=== PATIENT | male | born 1955 | race Caucasian/White ===

== ENCOUNTER 2018-06-17 16:44 | Observation (INO) ==
--- NOTE | 2018-06-17 17:28 | XR ---
EXAM DATE: 06/17/2018 5:23 PM EST AGE/SEX: 63 years / Male INDICATIONS: Syncopal episode today. CLINICAL DATA: This is the patient's initial encounter. Patient reports that signs and symptoms have been present for 1 day and indicates a pain score of 0/10. MEDICAL/SURGICAL HISTORY: Hypertension. CABG. COMPARISON: No prior exams available for comparison. FINDINGS: A single AP view of the chest demonstrates the lungs to be symmetrically aerated without evidence of mass, infiltrate or effusion. The cardiomediastinal contours are unremarkable. Osseous structures a re intact. Median sternotomy wires are noted. CONCLUSION: Clear lungs. Electronically signed by: Prasanth Bethea MD Board Certified Radiologist 06/17/2018 5:27 PM EST
--- NOTE | 2018-06-17 17:37 | ED ---
HPI General Chief Complaint: Syncope Stated Complaint: syncopal episode Time Seen by Provider: 06/17/18 17:03 Source: patient and EMS Mode of arrival: EMS Limitations: no limitations History of Present Illness HPI narrative: Patient is a 60-year-old male presenting to emerge department for evaluation after syncopal event. Patient was at home, he states that he felt somewhat lightheaded when he was getting ready for work. His encouraged him to lay down which he did and shortly thereafter he hurt his phone ring, he got up to get his phone when he passed out hitting his head on the coffee table and then the tile floor. Patient does not remember events immediately after. Per EMS patient was hypotensive on their arrival with a systolic blood pressure in the 70s, he was given IV fluids in route. Patient reports feeling fine now. He denies any headache, dizziness, chest pain, shortness of breath, abdominal pain, nausea, vomiting prior to the episode or after. Past medical history significant for hypertension, coronary artery disease, hyperlipidemia, prostate cancer. Patient had 5 vessel bypass in 2011. He is currently followed by Dr. Koo who he saw 6 weeks ago. Patient states he takes lisinopril and carvedilol, he also takes a baby aspirin at night. MD complaint: Reports collapsed Onset (ago): minute(s) -: minutes(s) Description of event: Reports post-event confusion Prodromal symptoms: Reports none Witnessed: yes - by other Context: Reports standing up Injuries sustained associated with event: Reports neck, face and head Current symptoms: Reports none History: Reports history of CAD Treatments prior to arrival: Reports IV fluids Related Data Home Medications Medication Instructions Recorded Confirmed carvedilol 12.5 mg PO DAILY 06/17/18 06/17/18 lisinopril 10 mg PO DAILY 06/17/18 06/17/18 Allergies Allergy/AdvReac Type Severity Reaction Status Date / Time No Known Allergies Allergy Uncoded 03/23/16 01:37 Review of Systems ROS: all other systems reviewed are negative [facility] Medical History Medical History CAD (coronary artery disease) (Acute) Hyperlipidemia (Acute) Hypertension (Acute) Prostate cancer (Acute) Social History Social History Smoking Status: Never smoker How Often Do You Have a Drink Containing Alcohol: Never Immunization History Tetanus Immunization: Unsure Exam Narrative Exam Narrative: GENERAL: Well-developed, well-nourished, alert male. Presenting in no acute distress. SKIN: Focused skin assessment warm/dry. Superficial abrasion to right cheek, bridge of nose HEAD: Atraumatic. Normocephalic. EYES: Pupils equal and round. No scleral icterus. No injection or drainage. ENT: No nasal bleeding or discharge. Mucous membranes pink and moist. NECK: Trachea midline. No JVD. CARDIOVASCULAR: Regular rate and rhythm. No murmur appreciated. RESPIRATORY: No accessory muscle use. Clear to auscultation. Breath sounds equal bilaterally. GASTROINTESTINAL: Abdomen soft, non-tender, nondistended. Hepatic and splenic margins not palpable. MUSCULOSKELETAL: No obvious deformities. No clubbing. No cyanosis. No edema. NEUROLOGICAL: Awake and alert. No obvious cranial nerve deficits. Motor grossly within normal limits. Normal speech. PSYCHIATRIC: Appropriate mood and affect; insight and judgment normal. Course Initial Documented Vital Signs Temperature 97.5 F L 06/17/18 16:51 Pulse Rate 71 06/17/18 16:51 Respiratory Rate 18 06/17/18 16:51 Blood Pressure 110/57 L 06/17/18 16:51 Pulse Oximetry 94 L 06/17/18 16:51 Last Documented Vital Signs Temperature 97.5 F L 06/17/18 16:51 Pulse Rate 82 06/17/18 19:04 Respiratory Rate 18 06/17/18 19:04 Blood Pressure 109/71 06/17/18 19:04 Pulse Oximetry 96 06/17/18 19:05 Medical Decision Making [facility] Narrative Medical decision making narrative: Patient is a 63-year-old male presenting to emerge department for evaluation after syncopal episode. IV access was established by EMS, he received IV fluids in route. Labs and imaging ordered and pending. CT scan of the brain, facial bones and cervical spine ordered. CT scan of the brain shows no acute findings, CT scan of the cervical spine with no acute findings, CT scan of the facial bones shows a comminuted nasal bone fracture. CBC with no acute findings, chemistry with potassium of 5.8. X-ray of the forearm is negative for acute findings. Cardiac enzymes are negative x1 set Due to patient's significant medical history patient will be admitted. Discussed with Dr. Landon who accepted admit. Orders placed. Patient is agreeable to stay. Medical Screen Exam Complete: Yes Emergency Medical Condition: Yes Lab Data Lab results reviewed: Yes I reviewed the patient's lab results. Result diagrams: 06/17/18 17:10 06/17/18 17:10 Lab Results 06/17/18 06/17/18 06/17/18 Range/Units 17:10 17:10 17:10 WBC 10.1 (4.0-11.0) th/mm3 RBC 4.98 (4.50-5.90) mil/mm3 Hgb 15.7 (13.0-17.0) gm/dL Hct 44.6 (39.0-51.0) % MCV 89.6 (80.0-100.0) fL MCH 31.4 (27.0-34.0) pg MCHC 35.1 (32.0-36.0) % RDW 13.2 (11.6-17.2) % Plt Count 228 (150-450) th/mm3 MPV 9.1 (7.0-11.0) fL Prelim Diff (Auto) Slide review pending Neut % (Auto) 74.6 H (16.0-70.0) % Lymph % (Auto) 16.7 (9.0-44.0) % Dickinson % (Auto) 6.7 (0.0-8.0) % Eos % (Auto) 1.5 (0.0-4.0) % Baso % (Auto) 0.5 (0.0-2.0) % Neut # (Auto) 7.6 (1.8-7.7) th/mm3 Lymph # (Auto) 1.7 (1.0-4.8) th/mm3 Dickinson # (Auto) 0.7 (0.0-0.9) th/mm3 Eos # (Auto) 0.1 (0.0-0.4) th/mm3 Baso # (Auto) 0.0 (0.0-0.2) th/mm3 WBC Differential . Diff Scan Auto diff confirmed Differential Comment . Platelet Estimate Normal (Normal) Platelet Morphology Normal (Normal) PT 10.7 (9.8-11.6) sec INR 1.1 Ratio APTT 25.5 (23.4-31.7) sec Sodium 140 (136-145) meq/L Potassium 5.8 H (3.5-5.1) meq/L Chloride 106 (98-107) meq/L Carbon Dioxide 26.6 (21.0-32.0) meq/L Anion Gap 7 (5-15) meq/L BUN 12 (7-18) mg/dL Creatinine 1.19 (0.60-1.30) mg/dL Estimated GFR 62 L (>89) mL/min Random Glucose 149 H (74-106) mg/dL Calcium 8.7 (8.5-10.1) mg/dL Magnesium 2.1 (1.5-2.5) mg/dL Total Bilirubin 1.6 H (0.2-1.0) mg/dL AST 23 (15-37) U/L ALT 22 (12-78) U/L Alkaline Phosphatase 102 (45-117) U/L Total Creatine Kinase 102 (39-308) U/L CK-MB (CK-2) 1.7 (0.5-3.6) ng/mL Troponin I Less than 0.02 L (0.02-0.05) ng/mL Total Protein 7.2 (6.4-8.2) g/dL Albumin 3.8 (3.4-5.0) g/dL Imaging Data Radiologist's impression: Chest X-Ray 06/17/18 16:57 CONCLUSION: Clear lungs. Cervical Spine CT 06/17/18 17:00 CONCLUSION: 1. No acute fracture or subluxation. 2. Degenerative spondylosis of the lower cervical spine. Face CT 06/17/18 17:00 CONCLUSION: 1. Comminuted nasal bone fractures, as above. Head CT 06/17/18 17:01 CONCLUSION: Unremarkable cranial study except for nasal bone fractures discussed on the patient's facial CT . Forearm X-Ray 06/17/18 18:57 CONCLUSION: 1. No acute fracture. Discharge Plan Discharge Disposition Patient Disposition: ED Admit(ED Internal Use Only) Discharge Condition Condition: Stable Discharge Order Discharge Orders: ED Use Only Admit Order (Routine); Ordered 06/17/18 Ordered By: Chel Lewis Discharge Details Diagnosis: Syncope, Hypotension, Fracture of nasal bone Physicians Team ED Provider: Rosibel Ortiz ED Midlevel Provider: Chel Lewis Rxs /Orders / Referrals /Forms Prescriptions: No Action carvedilol 12.5 mg Tablet 12.5 mg PO DAILY RF: 0 lisinopril 10 mg Tablet 10 mg PO DAILY RF: 0 Status ED Status: Admitted Observation Patient
--- NOTE | 2018-06-17 17:54 | CT ---
EXAM DATE: 06/17/2018 5:49 PM EST AGE/SEX: 63 years / Male INDICATIONS: Syncopal episode. No memory of incident. CLINICAL DATA: This is the patient's initial encounter. Patient reports that signs and symptoms have been present for 1 day and indicates a pain score of 7/10. MEDICAL/SURGICAL HISTORY: None. CABG. RADIATION DOSE: 56.35 CTDI (mGy) COMPARISON: No prior exams available for comparison. TECHNIQUE: CT of the head without contrast. Using automated exposure control and adjustment of the mA and/or kV according to patient size, radiation dose was kept as low as reasonably achievable to ob tain optimal diagnostic quality images. DICOM format image data is available electronically for revi ew and comparison. FINDINGS: There is no evidence for intracranial hemorrhage, mass effect, mass lesions, edema, or extra-axial fl uid collections. The visualized bony structures appear intact. The ventricles are normal size for t he patient's age. There are no signs of acute infarction for technique. Nasal bone fractures are pre sent discussed on the patient's facial CT. CONCLUSION: Unremarkable cranial study except for nasal bone fractures discussed on the patient's fa cial CT . Electronically signed by: Robert Caraballo MD Board Certified Radiologist 06/17/2018 5:52 PM EST
--- NOTE | 2018-06-17 17:55 | CT ---
EXAM DATE: 06/17/2018 5:50 PM EST AGE/SEX: 63 years / Male INDICATIONS: Syncopal episode. No memory of incident. CLINICAL DATA: This is the patient's initial encounter. Patient reports that signs and symptoms have been present for 1 day and indicates a pain score of 7/10. MEDICAL/SURGICAL HISTORY: None. CABG. RADIATION DOSE: 21.96 CTDI (mGy) COMPARISON: No prior exams available for comparison. TECHNIQUE: Contiguous images in the axial and coronal planes were obtained using helical multirow de tector technique. Using automated exposure control and adjustment of the mA and/or kV according to p atient size, radiation dose was kept as low as reasonably achievable to obtain optimal diagnostic charity lity images. DICOM format image data is available electronically for review and comparison. FINDINGS: Orbits: The orbital and infraorbital osseous structures are intact. The retroconal structures have a normal configuration. No radiopaque foreign bodies are seen. Nasal Bone: Comminuted fracture of the nasal bones. There is prominent right-sided deviation of the anterior bony nasal septum. Zygomatic Arches: Symmetric without evidence of fracture. Sinuses: The maxillary, ethmoid, and frontal sinuses are intact. No air-fluid levels seen. Mild muc operiosteal thickening involving the maxillary sinuses and ethmoid air cells bilaterally. Nasal Cavity: The lacrimal ducts are intact. Soft Tissues: No radiopaque foreign bodies seen. No soft-tissue swelling is seen. Intracranial: No intracranial air seen. Cribriform Plate: Grossly intact. CONCLUSION: 1. Comminuted nasal bone fractures, as above. Electronically signed by: Jori Bonilla MD Board Certified Radiologist 06/17/2018 5:54 PM EST
--- NOTE | 2018-06-17 17:57 | CT ---
EXAM DATE: 06/17/2018 5:52 PM EST AGE/SEX: 63 years / Male INDICATIONS: Syncopal episode. No memory of incident. CLINICAL DATA: This is the patient's initial encounter. Patient reports that signs and symptoms have been present for 1 day and indicates a pain score of 7/10. MEDICAL/SURGICAL HISTORY: None. CABG. RADIATION DOSE: 17.94 CTDI (mGy) COMPARISON: No prior exams available for comparison. TECHNIQUE: Contiguous axial images were obtained using helical multirow detector technique. The vol umetric data was post-processed with multiplanar reconstruction in oblique axial, sagittal, and coron al planes. Using automated exposure control and adjustment of the mA and/or kV according to patient s ize, radiation dose was kept as low as reasonably achievable to obtain optimal diagnostic quality sayra ges. DICOM format image data is available electronically for review and comparison. FINDINGS: OSSEOUS STRUCTURES: Vertebral body heights are maintained. Osseous structures are intact without evid ence for acute bony fracture. Dens is intact. ALIGNMENT: Sagittal alignment is maintained. There is a normal C1-2 relationship. Facets are normal ly aligned. SOFT TISSUES: There is no significant prevertebral soft tissue hematoma. No significant cervical tutu nopathy or gross mass. Visualized lung apices are clear without pneumothorax. ADDITIONAL FINDINGS: Degenerative spondylosis of the cervical spine most notably at C4-6 with promine nt anterior osteophytes. Bony central canal is patent. Bony neural foramina are patent. Multilevel f acet arthropathy most notably at C2-3 on the right. CONCLUSION: 1. No acute fracture or subluxation. 2. Degenerative spondylosis of the lower cervical spine. Electronically signed by: Jori Bonilla MD Board Certified Radiologist 06/17/2018 5:55 PM EST
[2018-06-17 18:13] LABS: Baso % (Auto) 0.5 % (0.0-2.0); Eos # (Auto) 0.1 th/mm3 (0.0-0.4); Eos % (Auto) 1.5 % (0.0-4.0); Hematocrit 44.6 % (39.0-51.0); Hemoglobin 15.7 gm/dL (13.0-17.0); Lymph # (Auto) 1.7 th/mm3 (1.0-4.8); Lymph % (Auto) 16.7 % (9.0-44.0); Mean Corpuscular HGB Conc 35.1 % (32.0-36.0); Mean Corpuscular Hemoglobin 31.4 pg (27.0-34.0); Mean Corpuscular Volume 89.6 fL (80.0-100.0); Mean Platelet Volume 9.1 fL (7.0-11.0); Mono # (Auto) 0.7 th/mm3 (0.0-0.9); Mono % (Auto) 6.7 % (0.0-8.0); Neut # (Auto) 7.6 th/mm3 (1.8-7.7); Neut % (Auto) 74.6 % (16.0-70.0); Platelet Count 228 th/mm3 (150-450); Red Blood Count 4.98 mil/mm3 (4.50-5.90); Red Cell Distribution Width 13.2 % (11.6-17.2); White Blood Count 10.1 th/mm3 (4.0-11.0)
[2018-06-17 18:21] LABS: Albumin 3.8 g/dL (3.4-5.0); Anion Gap 7 meq/L (5-15); Aspartate Aminotransferase 23 U/L (15-37); Blood Urea Nitrogen 12 mg/dL (7-18); Calcium 8.7 mg/dL (8.5-10.1); Carbon Dioxide 26.6 meq/L (21.0-32.0); Chloride 106 meq/L (98-107); Glomerular Filtration Rate 62 mL/min (>89); Glucose,Random 149 mg/dL (74-106); Magnesium 2.1 mg/dL (1.5-2.5); Potassium 5.8 meq/L (3.5-5.1); Sodium 140 meq/L (136-145)
[2018-06-17 18:24] LABS: Activated Partial Thrombo Time 25.5 sec (23.4-31.7); INR 1.1 Ratio; Prothrombin Time 10.7 sec (9.8-11.6)
[2018-06-17 18:26] LABS: Alanine Aminotransferase 22 U/L (12-78); Alkaline Phosphatase 102 U/L (45-117); Creatine Kinase 102 U/L (39-308); Total Protein 7.2 g/dL (6.4-8.2)
[2018-06-17 18:38] LABS: Creatine Kinase MB 1.7 ng/mL (0.5-3.6)
[2018-06-17 18:50] LABS: Platelet Estimate Normal (Normal); Platelet Morphology Normal (Normal)
--- NOTE | 2018-06-17 19:18 | XR ---
EXAM DATE: 06/17/2018 7:16 PM EST AGE/SEX: 63 years / Male INDICATIONS: Left forearm pain after fall. CLINICAL DATA: This is the patient's initial encounter. Patient reports that signs and symptoms have been present for 1 day and indicates a pain score of 6/10. MEDICAL/SURGICAL HISTORY: None. None. COMPARISON: No prior exams available for comparison. FINDINGS: Bony structures are intact and in normal alignment. Osseous density is normal. Soft tissues are unre markable. No radiopaque foreign bodies seen. CONCLUSION: 1. No acute fracture. Electronically signed by: Jori Bonilla MD Board Certified Radiologist 06/17/2018 7:16 PM EST
[2018-06-17] MEDS ORDERED: Acetaminophen 325 MG Tablet PO PRN (19:31)
[2018-06-17] MEDS ORDERED: Bisacodyl 10 MG Supp RECTAL PRN (19:31)
[2018-06-17] MEDS ORDERED: Dextrose 50% in Water 50 ML Vial IV.PUSH ONE (20:12)
[2018-06-17] MEDS ORDERED: Insulin NovoLIN Regular Correctional Sugar Inj IV.PUSH ONE (20:14)
--- NOTE | 2018-06-17 20:49 | P.HPIM ---
History of Present Illness Primary Care Physician: UNKNOWN History of Present Illness: This is a 63-year-old male with a PMH of HTN, Hyperlipidemia, CAD s/p CABG and h/o Prostate CA s/p Prostatectomy who was brought to the ER by EMS after syncopal event. Pt states he got up to answer the phone and had sudden syncopal event. +head/facial trauma. Notes some lightheadedness earlier this morning after taking his BP medications. Upon EMS arrival, BP 70's systolic, s/p IVF w/ improvement. No h/o similar episodes. Follows carri/ Dr Koo as outpatient, seen in office approx 6wks ago w/ good exam. On arrival, BP 110/57, HR 71, O2 sat 94% on RA, Afebrile. CBC unremarkable. INR 1.1. K+ 5.8. GFR 62. Troponin negative. CT Head with no acute intracranial findings. CT C-spine negative for acute fracture or subluxation. CT Face comminuted nasal bone fractures. CXR negative. Forearm X -ray negative for fracture. Diagnosis (1) Syncope: (2) Hypotension: (3) Fracture of nasal bone: (4) Hyperkalemia: Review of Systems PAST FAMILY HISTORY: Reviewed. No h/o DM or CAD Review of Systems: all other systems reviewed are negative [facility] Medical History Medical History CAD (coronary artery disease) (Acute) Hyperlipidemia (Acute) Hypertension (Acute) Prostate cancer (Acute) Social History Social History Smoking Status: Never smoker How Often Do You Have a Drink Containing Alcohol: Never Immunization History Tetanus Immunization: Unsure Medications and Allergies Allergies Allergy/AdvReac Type Severity Reaction Status Date / Time No Known Allergies Allergy Uncoded 03/23/16 01:37 Home Medications Medication Instructions Recorded Confirmed Type carvedilol 12.5 mg PO DAILY 06/17/18 06/17/18 History lisinopril 10 mg PO DAILY 06/17/18 06/17/18 History Active Medications: Active Medications Acetaminophen (Tylenol) 650 mg PO Q4H PRN PRN Reason: Temp > 100.4 Hydrocodone Bitart/Acetaminophen ([place] 5/325) 1 tab PO Q4H PRN PRN Reason: PAIN SCALE 3 TO 5 Al Hydroxide/Mg Hydroxide (Milk Of Magnesia Liq) 30 ml PO Q12H PRN PRN Reason: Mild Constipation Bisacodyl (Dulcolax Supp) 10 mg RECTAL DAILY PRN PRN Reason: SEVERE CONSITIPATION Sodium Chloride (Ns Inj) 1,000 mls @ 100 mls/hr IV.CONT .Q10H DOC Calcium Gluconate 1 gm/ (Dextrose) 110 mls @ 110 mls/hr IV.SIG ONCE ONE Stop: 06/17/18 22:59 Lactulose (Lactulose Liq) 30 ml PO DAILY PRN PRN Reason: SEVERE CONSITIPATION Morphine Sulfate (Morphine Inj) 2 mg IV.PUSH Q4H PRN PRN Reason: PAIN SCALE 6 TO 10 Ondansetron HCl (Zofran Inj) 4 mg IV.PUSH Q6H PRN PRN Reason: NAUSEA OR VOMITING Senna/Docusate Sodium (Catia-Colace) 1 tab PO BID DOC Sennosides (Senokot) 17.2 mg PO Q12H PRN PRN Reason: Moderate Constipation Sodium Chloride (Ns Flush) 2 ml IV.FLUSH BID DOC Sodium Chloride (Ns Flush) 2 ml IV.FLUSH PRN PRN PRN Reason: FLUSH AFTER USING IV ACCESS Physical Exam Vital signs: Vital Signs 06/17/18 16:51 06/17/18 17:57 06/17/18 19:04 Temperature 97.5 F L Pulse Rate 71 66 82 Respiratory Rate 18 20 18 Blood Pressure 110/57 L 109/59 L 109/71 Pulse Oximetry 94 L 95 96 06/17/18 19:05 Temperature Pulse Rate Respiratory Rate Blood Pressure Pulse Oximetry 96 Intake & Output 06/17/18 06/17/18 06/18/18 06:59 18:59 06:59 Weight 83.915 kg Narrative: PE: GENERAL: Very pleasant middle-aged white male in no acute distress. SKIN: Focused skin assessment warm and dry. HEENT: PERRLA, EOMI. No scleral icterus or conjunctival pallor. No lid lag or facial droop. +small abrasion right cheek, nose CARDIOVASCULAR: Regular rate and rhythm. No obvious murmurs to auscultation. No chest tenderness to palpation. RESPIRATORY: No obvious rhonchi or wheezing. Clear to auscultation. Breath sounds equal bilaterally. GASTROINTESTINAL: Abdomen soft, non-tender, nondistended. BS normal. MUSCULOSKELETAL: Extremities without clubbing, cyanosis, or edema. No obvious deformities. NEUROLOGICAL: Awake, alert and oriented x4. No focal neurologic deficits. Moving both upper and lower extremities spontaneously. PSYCHIATRIC: Appropriate mood and affect. Insight and judgment normal. Results Labs CBC & Chem 7: 06/17/18 17:10 06/17/18 17:10 Imaging Impressions Chest X-Ray 06/17/18 16:57 CONCLUSION: Clear lungs. Cervical Spine CT 06/17/18 17:00 CONCLUSION: 1. No acute fracture or subluxation. 2. Degenerative spondylosis of the lower cervical spine. Face CT 06/17/18 17:00 CONCLUSION: 1. Comminuted nasal bone fractures, as above. Head CT 06/17/18 17:01 CONCLUSION: Unremarkable cranial study except for nasal bone fractures discussed on the patient's facial CT . Forearm X-Ray 06/17/18 18:57 CONCLUSION: 1. No acute fracture. Caprini VTE Risk Assessment Caprini VTE Risk Assessment: No/Low Risk (score <= 1) Caprini Risk Assessment Model: Point Value = 1 Point Value = 2 Point Value = 3 Point Value = 5 Age 41-60 Minor surgery BMI > 25 kg/m2 Swollen legs Varicose veins or History of unexplained or recurrent spontaneous Oral contraceptives or hormone replacement Sepsis (< 1 month) Serious lung disease, including pneumonia (< 1 month) Abnormal pulmonary function Acute myocardial infarction Congestive heart failure (< 1 month) History of inflammatory bowel disease Medical patient at bed rest Age 61-74 Arthroscopic surgery Major open surgery (> 45 min) Laparoscopic surgery (> 45 min) Malignancy Confined to bed (> 72 hours) Immobilizing plaster cast Central venous access Age >= 75 History of VTE Family history of VTE Factor V Leiden Prothrombin [id number] Lupus anticoagulant Anticardiolipin antibodies Elevated serum homocysteine Heparin-induced thrombocytopenia Other congenital or acquired thrombophilia Stroke (< 1 month) Elective arthroplasty Hip, pelvis, or leg fracture Acute spinal cord injury (< 1 month) Prophylaxis Regimen: Total Risk Factor Score Risk Level Prophylaxis Regimen 0-1 Low Early ambulation 2 Moderate Order ONE of the following: *Sequential Compression Device (SCD) *Heparin 5000 units SQ BID 3-4 Higher Order ONE of the following medications: *Heparin 5000 units SQ TID *Enoxaparin/Lovenox 40 mg SQ daily (WT < 150 kg, CrCl > 30 mL/min) *Enoxaparin/Lovenox 30 mg SQ daily (WT < 150 kg, CrCl > 10-29 mL/min) *Enoxaparin/Lovenox 30 mg SQ BID (WT < 150 kg, CrCl > 30 mL/min) AND/OR *Sequential Compression Device (SCD) 5 or more Highest Order ONE of the following medications: *Heparin 5000 units SQ TID (Preferred with Epidurals) *Enoxaparin/Lovenox 40 mg SQ daily (WT < 150 kg, CrCl > 30 mL/min) *Enoxaparin/Lovenox 30 mg SQ daily (WT < 150 kg, CrCl > 10-29 mL/min) *Enoxaparin/Lovenox 30 mg SQ BID (WT < 150 kg, CrCl > 30 mL/min) AND *Sequential Compression Device (SCD) Assessment and Plan (1) Syncope: Code(s): R55 - Syncope and collapse Status: Acute (2) Hypotension: Code(s): I95.9 - Hypotension, unspecified Status: Acute (3) Fracture of nasal bone: Code(s): S02.2XXA - Fracture of nasal bones, initial encounter for closed fracture Status: Acute (4) Hyperkalemia: Code(s): E87.5 - Hyperkalemia Status: Acute Plan A/P: 1. Syncope: likely vasovagal due to hypotension/dehydration, BP 70's upon EMS arrival, +lightheadedness prior to event, admit for Observation, telemetry, check serial cardiac enzymes to eval for valvular abnormality/cardiomyopathy. IVF for hydration, Follows w/ Dr. Koo, will consult for further eval/ recommendations. 2. Hypotension: BP 70's upon EMS arrival, s/p IVF w/ improvement, monitor BP closely, hold home Coreg/Lisinopril for now. 3. Hyperkalemia: K+ 5.8, telemetry, Ca/Insulin/D50, repeat labs in am. 4. Nasal Fx: secondary to syncopal event, CT Head/C-Spine w/ no acute findings or fracture, CT Face w/ nasal bone fractures, outpatient ENT eval as needed. Analgesics/antiemetics as needed. 5. DVT Prophylaxis: SCD/Teds 6. Social work for d/c planning as needed. 7. Case discussed w/ ER physician at length, labs/records/imaging reviewed by me. _ (1) Syncope Qualifiers: Encounter type: Syncope type: (2) Hypotension Qualifiers: Hypotension type: Trimester: (3) Fracture of nasal bone Qualifiers: Encounter type: Fracture healing: Fracture type:
[2018-06-17] MEDS ORDERED: Calcium Gluconate Inj 1 GM in Dextrose 5% in Water Inj 100 ML IV.SIG ONE ×2 (22:00)
--- NOTE | 2018-06-17 22:30 | ECG ---
Date Performed: 06/17/2018 Time Performed: 17:50:40 PTAGE: 63 years EKG: Sinus rhythm LEFT AXIS RIGHT BUNDLE BRANCH BLOCK OLD INFERIOR MYOCARDIAL INFARCTION ABNORMAL ECG PREVIOUS TRACING : 03/23/2016 08.05 Since the previous tracing, no significant change noted DOCTOR: Eugenie Koo Interpretating Date/Time 06/17/2018 22:29:00
[2018-06-17] MEDS: Sod Chloride 0.9% Inj 1,000 ML IV.CONT SCH (23:24)
[2018-06-17] MEDS: Senna/Docusate Sodium 8.6/50 MG Tablet PO SCH (23:25)
[2018-06-17] MEDS: Morphine Sulfate Inj 2 MG/ML Vial IV.PUSH PRN (23:46)
[2018-06-18] MEDS: Sod Chloride 0.9% Inj 1,000 ML IV.CONT SCH ×2 (06:46→16:17)
[2018-06-18 06:57] LABS: Baso % (Auto) 0.3 % (0.0-2.0); Eos # (Auto) 0.1 th/mm3 (0.0-0.4); Eos % (Auto) 0.6 % (0.0-4.0); Hematocrit 42.7 % (39.0-51.0); Lymph # (Auto) 1.7 th/mm3 (1.0-4.8); Lymph % (Auto) 14.5 % (9.0-44.0); Mean Corpuscular HGB Conc 35.1 % (32.0-36.0); Mean Corpuscular Hemoglobin 31.8 pg (27.0-34.0); Mean Corpuscular Volume 90.5 fL (80.0-100.0); Mono # (Auto) 0.8 th/mm3 (0.0-0.9); Mono % (Auto) 7.2 % (0.0-8.0); Neut # (Auto) 8.9 th/mm3 (1.8-7.7); Neut % (Auto) 77.4 % (16.0-70.0); Platelet Count 178 th/mm3 (150-450); Red Blood Count 4.71 mil/mm3 (4.50-5.90); Red Cell Distribution Width 13.2 % (11.6-17.2); White Blood Count 11.5 th/mm3 (4.0-11.0)
[2018-06-18 07:35] LABS: Alanine Aminotransferase 24 U/L (12-78); Albumin 3.4 g/dL (3.4-5.0); Alkaline Phosphatase 95 U/L (45-117); Anion Gap 8 meq/L (5-15); Aspartate Aminotransferase 19 U/L (15-37); Blood Urea Nitrogen 12 mg/dL (7-18); Calcium 8.7 mg/dL (8.5-10.1); Carbon Dioxide 25.7 meq/L (21.0-32.0); Chloride 108 meq/L (98-107); Glomerular Filtration Rate Greater Than 89 mL/min (>89); Glucose,Random 93 mg/dL (74-106); Sodium 142 meq/L (136-145); Total Protein 6.9 g/dL (6.4-8.2)
--- NOTE | 2018-06-18 07:58 | P.PNIM ---
Subjective Interval history: Follow-up for syncope, hypertension, hyperkalemia. Patient reports he feels like he was hit by a truck. States he is very sore throughout his face. Patient explains that over the past few months he has had intermittent brief episodes of lightheadedness, that resolved spontaneously. He states he has been on the same dosing of his lisinopril and Coreg since 2011. He states that he has lost about 20 pounds recently due to stress but also cutting back on soda. Patient denies any recent vomiting or diarrhea, does admit to possibly not drinking as much fluids recently. He denies any recent chest pains, palpitations, shortness of breath. Denies any abdominal complaints. He states due to his history of prostatectomy, he does wear a pad for occasional incontinence, but he states this is fairly well controlled. He denies any seizure-like activity. This is the first time he actually passed out. He follows with liaison engineer Dr. Koo. Denies any history of arrhythmia or cardiomyopathy. Denies any other medical complaints at this time. Physical Exam Vital signs: Vital Signs 06/17/18 16:51 06/17/18 17:57 06/17/18 19:04 Temperature 97.5 F L Pulse Rate 71 66 82 Respiratory Rate 18 20 18 Blood Pressure 110/57 L 109/59 L 109/71 Pulse Oximetry 94 L 95 96 06/17/18 19:05 06/17/18 21:05 06/17/18 23:33 Temperature 98.1 F Pulse Rate 78 87 Respiratory Rate 20 Blood Pressure 145/86 H Pulse Oximetry 96 96 06/18/18 01:05 06/18/18 04:00 06/18/18 05:05 Temperature 98.4 F Pulse Rate 97 H 82 75 Respiratory Rate 20 Blood Pressure 138/82 Pulse Oximetry 97 Intake & Output 06/17/18 06/18/18 06/18/18 18:59 06:59 18:59 Intake Total 600 / 600 Balance 600 / 600 Weight 83.915 kg Intake: IV 110 / 110 Calcium Gluconate Inj 1 GM In 110 / 110 D5W Inj 100 ML @ 110 mls/hr IV. SIG ONCE ONE Rx#:[id number] Oral 490 / 490 Other: # Voids 2 Date of Last Bowel Movement 06/17/18 Narrative: GENERAL: Well-nourished, well-developed pleasant middle-age male patient in [facility]. SKIN: Warm and dry. No rash. HEENT: Right periorbital ecchymosis and abrasions at right cheek and nasal bridge. Pupils equal and round. Mucous membranes pink and moist. NECK: Supple. Trachea midline. Nontender. CARDIOVASCULAR: Regular rate and rhythm. No murmur appreciated. RESPIRATORY: No accessory muscle use. Clear to auscultation. Breath sounds equal bilaterally. GASTROINTESTINAL: Abdomen soft, non-tender, nondistended. Normoactive bowel sounds x4. MUSCULOSKELETAL: No obvious deformities. Extremities without clubbing, cyanosis , or edema. NEUROLOGICAL: Awake and alert. No obvious cranial nerve deficits. Moving all extremities spontaneously. Normal speech. PSYCHIATRIC: Appropriate mood and affect; insight and judgment normal. Results Labs CBC & Chem 7: 06/18/18 05:41 06/18/18 05:41 Imaging Imaging: Impressions Chest X-Ray 06/17/18 16:57 CONCLUSION: Clear lungs. Cervical Spine CT 06/17/18 17:00 CONCLUSION: 1. No acute fracture or subluxation. 2. Degenerative spondylosis of the lower cervical spine. Face CT 06/17/18 17:00 CONCLUSION: 1. Comminuted nasal bone fractures, as above. Head CT 06/17/18 17:01 CONCLUSION: Unremarkable cranial study except for nasal bone fractures discussed on the patient's facial CT . Forearm X-Ray 06/17/18 18:57 CONCLUSION: 1. No acute fracture. Assessment and Plan (1) Syncope: Code(s): R55 - Syncope and collapse Status: Acute (2) Hypotension: Code(s): I95.9 - Hypotension, unspecified Status: Acute (3) Fracture of nasal bone: Code(s): S02.2XXA - Fracture of nasal bones, initial encounter for closed fracture Status: Acute (4) Hyperkalemia: Code(s): E87.5 - Hyperkalemia Status: Acute Plan 63-year-old male with a PMH of HTN, Hyperlipidemia, CAD s/p CABG and h/o Prostate CA s/p Prostatectomy who was brought to the ER by EMS after syncopal event. Syncope: likely vasovagal due to hypotension/dehydration, BP 70's upon EMS arrival, +lightheadedness prior to event -Monitor on telemetry -ACS ruled out with negative serial cardiac enzymes. -check Echo to eval for valvular abnormality/cardiomyopathy. -check orthostatics -Give IVF for hydration -Follows w/ Dr. Koo, will consult for further eval/recommendations. Hypotension: BP 70's upon EMS arrival, s/p IVF w/ improvement -monitor BP closely -holding home Coreg/Lisinopril for now. -patient reports recent 20lbs weight loss, likely can decrease antihypertensive dosing Hyperkalemia: K+ 5.8 -S/p Ca/Insulin/D50 in the ED -Monitor on telemetry -Repeat labs improved with K 4.0 -Resolved Nasal Fracture: secondary to syncopal event. Nonsurgical. -CT Head/C-Spine w/ no acute findings or fracture -CT Face w/ nasal bone fractures, outpatient ENT eval as needed. -Analgesics/antiemetics as needed. DVT Prophylaxis: SCD/Teds Attending Attestation patient was seen and examined today. presented with syncope and low BP. now resting comfortably with no chest pain or sob. on exam; has right periorbital ecchymosis with some nasal swelling. awaiting cardiology evaluation. continue to monitor BP. rest of assessment and plan as noted above. d/w the patient and family at the bedside. Progress Note: Quality VTE Deep Vein Thrombosis/Pulmonary Embolism Present on Admission: No _ (1) Fracture of nasal bone Qualifiers: Encounter type: Fracture healing: Fracture type: (2) Syncope Qualifiers: Encounter type: Syncope type: (3) Hypotension Qualifiers: Hypotension type: Trimester:
[2018-06-18] MEDS: Senna/Docusate Sodium 8.6/50 MG Tablet PO SCH ×2 (09:01→20:32)
[2018-06-18] MEDS ORDERED: Lisinopril 5 MG Tablet PO SCH (11:15)
[2018-06-18] MEDS: Carvedilol 6.25 MG Tablet PO SCH ×2 (11:30→20:32)
--- NOTE | 2018-06-18 13:57 | MB ---
cc: Eugenie Koo MD DATE: 06/18/2018 HISTORY OF PRESENT ILLNESS: Mr. Alejo is a 63-year-old white male, well known to my practice with a history of hypertension, dyslipidemia, coronary artery disease, and coronary bypass. After he took his medications yesterday, he felt dizzy. He laid down, but got up quickly after his phone rang and he passed out and hit his face. He was hypertensive in the emergency room. This improved with IV fluids. He has not had any chest pain, shortness of breath, or palpitations. PAST MEDICAL HISTORY: Positive for coronary artery disease, coronary artery bypass, dyslipidemia, hypertension, prostate cancer, prostatectomy. MEDICATIONS: include: 1. Carvedilol. 2. Lisinopril. ALLERGIES: NONE. SOCIAL HISTORY: The patient does not smoke. He does not drink alcohol. FAMILY HISTORY: Negative for heart disease. REVIEW OF SYSTEMS: Otherwise negative. PHYSICAL EXAMINATION: VITAL SIGNS: Blood pressure 155/74, pulse 84 and regular. HEENT: Negative, 2+ carotid upstrokes, no bruits. LUNGS: Clear. HEART: Regular with no murmur, gallop, or rub. ABDOMEN: Soft. No residual edema. EXTREMITIES: With 2+ distal pulses. NEUROLOGIC: Grossly nonfocal. SKIN: Face with multiple lacerations. DIAGNOSTIC DATA: EKG was reviewed and showed normal sinus rhythm, left axis, right bundle-branch block, and old inferior myocardial infarction. LABORATORY DATA: Hemoglobin 15.0. Potassium 4.0, creatinine 1.2 and 0.8, AST and ALT normal. Troponin negative x3. Orthostatics showed a systolic blood pressure in the 150s and 160s with supine, sitting, and standing position. IMPRESSION: 1. Syncope. 2. Hypotension. 3. Hypertension. 4. Coronary artery disease, history of coronary artery bypass. 5. Facial injury after a fall. DISPOSITION: Mr. Alejo will be monitored on telemetry. He has been ruled out for myocardial infarction by enzymes. He was hypotensive on admission, but currently is hypertensive on his medications. I recommend to resume his medications at lower dose for better control of his elevated blood pressure. At this time, I believe his syncope is related to a combination of dehydration and blood pressure medications. I will follow him for cardiology during his hospitalization. I will also see him back for followup in our office after discharge. The plan was discussed with the patient and his . MD MARIA ISABEL Perez/itz , 01:04 PM , 01:13 PM SHARON
--- NOTE | 2018-06-18 15:22 | ECHRPT ---
Indication: Syncope CONCLUSIONS Normal left ventricular size. Mild concentric left ventricular hypertrophy. The left ventricular systolic function is normal with an estimated ejection fraction in the range of 55-60%. There is trace tricuspid valve regurgitation. The estimated pulmonary arterial pressure is 36 mmHg. BP: / HR: Rhythm: MEASUREMENTS (Male / Female) Normal Values Technical Quality:Fair 2D ECHO LV Diastolic Diameter PLAX 5.5 cm 4.2 - 5.9 / 3.9 - 5.3 cm LV Systolic Diameter PLAX 3.9 cm IVS Diastolic Thickness 1.3 cm 0.6 - 1.0 / 0.6 - 0.9 cm LVPW Diastolic Thickness 1.1 cm 0.6 - 1.0 / 0.6 - 0.9 cm LV Relative Wall Thickness 0.5 LVOT Diameter 2.1 cm Aortic Root Diameter 3.0 cm LA Systolic Diameter LX 3.8 cm 3.0 - 4.0 / 2.7 - 3.8 cm DOPPLER AV Peak Velocity 122.0 cm/s AV Peak Gradient 6.0 mmHg LVOT Peak Velocity 105.0 cm/s LVOT Peak Gradient 4.4 mmHg AV Area Cont Eq pk 3.0 cm Mitral E Point Velocity 60.2 cm/s Mitral A Point Velocity 77.0 cm/s Mitral E to A Ratio 0.8 LV E' Lateral Velocity 12.1 cm/s Mitral E to LV E' Lateral Ratio 5.0 LV E' Septal Velocity 8.2 cm/s Mitral E to LV E' Septal Ratio 7.4 TR Peak Velocity 254.0 cm/s TR Peak Gradient 25.8 mmHg Right Atrial Pressure 10.0 mmHg Pulmonary Artery Systolic Pressu 35.8 mmHg Right Ventricular Systolic Press 35.8 mmHg PV Peak Velocity 97.7 cm/s PV Peak Gradient 3.8 mmHg FINDINGS LEFT VENTRICLE Normal left ventricular size. Mild concentric left ventricular hypertrophy. The left ventricular systolic function is normal with an estimated ejection fraction in the range of 55-60%. RIGHT VENTRICLE Normal right ventricular size and systolic function. LEFT ATRIUM The left atrial size is normal. RIGHT ATRIUM The right atrial size is normal. ATRIAL SEPTUM Normal atrial septal thickness without atrial level shunting by limited color doppler interrogation. AORTA The aortic root and proximal ascending aorta are normal in size on limited imaging. MITRAL VALVE Structurally normal mitral valve. No mitral valve stenosis or regurgitation. AORTIC VALVE Trileaflet aortic valve. No aortic valve stenosis or regurgitation. TRICUSPID VALVE There is trace tricuspid valve regurgitation. The estimated pulmonary arterial pressure is 36 mmHg. PULMONARY VALVE No pulmonary valve regurgitation or stenosis. VESSELS The inferior vena cava is normal in size. PERICARDIUM No pericardial effusion. Earl Villarreal MD (Electronically Signed) Final Date:18 June 2018 15:20
[2018-06-18] MEDS: Morphine Sulfate Inj 2 MG/ML Vial IV.PUSH PRN (18:11)
[2018-06-19] MEDS: Sod Chloride 0.9% Inj 1,000 ML IV.CONT SCH (01:58)
[2018-06-19 03:50] VITALS: O2SAT 96
--- NOTE | 2018-06-19 08:04 | P.PNIM ---
Subjective Interval history: Follow-up for syncope, hypotension, dehydration. Patient reports feeling better today. States his face is nonpainful, occasionally has a mild headache, however improved. Denies any chest pain, palpitations, shortness of breath. Denies any lightheadedness or dizziness. He is tolerating oral intake. BP is now elevated. Discussed with Dr. Koo, agrees with continuing lisinopril 10 mg daily, and continue decreased dose of Coreg to 6.25 mg twice a day. Per Dr. Koo, the patient can go home when BP better controlled in the 140s or less. Physical Exam Vital signs: Vital Signs 06/18/18 09:00 06/18/18 11:23 06/18/18 16:00 Temperature 97.0 F L 96.8 F L Pulse Rate 76 84 70 Respiratory Rate 16 15 Blood Pressure 155/74 H 146/99 H Pulse Oximetry 98 98 06/18/18 19:49 06/18/18 20:01 06/18/18 23:40 Temperature 98.1 F Pulse Rate 75 67 Respiratory Rate 16 16 16 Blood Pressure 164/92 H 171/95 H Pulse Oximetry 96 93 L 06/19/18 03:49 Temperature Pulse Rate 59 L Respiratory Rate 16 Blood Pressure 165/90 H Pulse Oximetry 96 Intake & Output 06/18/18 06/19/18 06/19/18 18:59 06:59 18:59 Intake Total 100 / 100 900 / 900 Output Total 225 / 225 Balance 100 / 100 675 / 675 Intake: IV 100 / 100 900 / 900 NS Inj 1,000 ML @ 100 mls/hr IV 100 / 100 900 / 900 .CONT .Q10H [facility] Rx#:[id number] Output: Urine 225 / 225 Other: # Voids 2 Date of Last Bowel Movement 06/19/18 Narrative: GENERAL: Well-nourished, well-developed pleasant middle-age male patient in [facility]. SKIN: Warm and dry. No rash. HEENT: Bilateral periorbital ecchymosis and edema, right worse than left, with abrasions at right cheek and nasal bridge. Pupils equal and round. Mucous membranes pink and moist. NECK: Supple. Trachea midline. Nontender. CARDIOVASCULAR: Regular rate and rhythm. No murmur appreciated. RESPIRATORY: No accessory muscle use. Clear to auscultation. Breath sounds equal bilaterally. GASTROINTESTINAL: Abdomen soft, non-tender, nondistended. Normoactive bowel sounds x4. MUSCULOSKELETAL: No obvious deformities. Extremities without clubbing, cyanosis , or edema. NEUROLOGICAL: Awake and alert. No obvious cranial nerve deficits. Moving all extremities spontaneously. Normal speech. PSYCHIATRIC: Appropriate mood and affect; insight and judgment normal. Results Labs CBC & Chem 7: 06/18/18 05:41 06/18/18 05:41 Assessment and Plan (1) Syncope: Code(s): R55 - Syncope and collapse Status: Acute (2) Hypotension: Code(s): I95.9 - Hypotension, unspecified Status: Acute (3) Fracture of nasal bone: Code(s): S02.2XXA - Fracture of nasal bones, initial encounter for closed fracture Status: Acute (4) Hyperkalemia: Code(s): E87.5 - Hyperkalemia Status: Acute Plan 63-year-old male with a PMH of HTN, Hyperlipidemia, CAD s/p CABG and h/o Prostate CA s/p Prostatectomy who was brought to the ER by EMS after syncopal event. Syncope: likely vasovagal due to hypotension/dehydration, BP 70's upon EMS arrival, +lightheadedness prior to event -Monitor on telemetry -ACS ruled out with negative serial cardiac enzymes. -Echo unremarkable with EF 55-60% -orthostatics negative -Given IVF for hydration, now d/jadiel -Consulted patient's auto repair technician Dr. Koo, cleared for discharge when SBP 140s or less. -Outpatient f/up with Dr. Koo Hypotension: BP 70's upon EMS arrival, s/p IVF w/ improvement. Patient reports recent 20lbs weight loss, likely can decrease antihypertensive dosing -monitor BP closely -initially held home Coreg, lisinopril - however now restarted at lower doses per Dr. Koo -BP uncontrolled today, resume lisinoprol 10mg daily, and continued decrease dose of coreg 6.25mg bid - discussed with Dr. Koo who agrees with plan -Per Dr. Koo, ok to d/c when SBP improves to 140s or less. -Patient/ to keep BP log at home and report to Dr. Koo as outpatient Hyperkalemia: K+ 5.8 -S/p Ca/Insulin/D50 in the ED -Monitor on telemetry -Repeat labs improved with K 4.0, Resolved Nasal Fracture: secondary to syncopal event. Nonsurgical. -CT Head/C-Spine w/ no acute findings or fracture -CT Face w/ nasal bone fractures, outpatient ENT eval as needed. -Analgesics/antiemetics as needed. -Will d/c on [place] prn (Per [facility], patient last filled Percocet 5/325mg # 30tabs on 05/14/17) DVT Prophylaxis: SCD/Teds; avoiding chemical prophylaxis with facial/head trauma Attending Attestation patient was seen and examined today. overall doing fine. BP trend noted. started back on his BP meds at a lower dose. previously d/w . dc planning; within the next 24 hrs if BP stable. rest of assessment and plan as noted above. Progress Note: Quality VTE Deep Vein Thrombosis/Pulmonary Embolism Present on Admission: No _ (1) Fracture of nasal bone Qualifiers: Encounter type: Fracture healing: Fracture type: (2) Syncope Qualifiers: Encounter type: Syncope type: (3) Hypotension Qualifiers: Hypotension type: Trimester:
[2018-06-19 08:27] VITALS: RESP 20
[2018-06-19] MEDS: Carvedilol 6.25 MG Tablet PO SCH (08:40)
[2018-06-19] MEDS: Senna/Docusate Sodium 8.6/50 MG Tablet PO SCH (08:42)
[2018-06-19] MEDS ORDERED: Lisinopril 10 MG Tablet PO SCH (09:00)
[2018-06-19 11:42] VITALS: PULSE 71
[2018-06-19 12:18] VITALS: BP 144/84; TEMP 96.6
--- NOTE | 2018-06-19 12:57 | P.PNCA ---
Subjective Interval history: No CP or SOB, BP still elevated, no dizziness Medications and Allergies Active Medications: Active Medications Acetaminophen (Tylenol) 650 mg PO Q4H PRN PRN Reason: Temp > 100.4 Hydrocodone Bitart/Acetaminophen ([place] 5/325) 1 tab PO Q4H PRN PRN Reason: PAIN SCALE 3 TO 5 Last Admin: 06/19/18 08:48 Dose: 1 tab Al Hydroxide/Mg Hydroxide (Milk Of Magnesia Liq) 30 ml PO Q12H PRN PRN Reason: Mild Constipation Last Admin: 06/18/18 18:15 Dose: 30 ml Bisacodyl (Dulcolax Supp) 10 mg RECTAL DAILY PRN PRN Reason: SEVERE CONSITIPATION Carvedilol (Coreg) 6.25 mg PO BID [facility] Last Admin: 06/19/18 08:40 Dose: 6.25 mg Lactulose (Lactulose Liq) 30 ml PO DAILY PRN PRN Reason: SEVERE CONSITIPATION Lisinopril (Prinivil) 10 mg PO DAILY [facility] Last Admin: 06/19/18 08:49 Dose: 10 mg Morphine Sulfate (Morphine Inj) 2 mg IV.PUSH Q4H PRN PRN Reason: PAIN SCALE 6 TO 10 Last Admin: 06/18/18 18:11 Dose: 2 mg Ondansetron HCl (Zofran Inj) 4 mg IV.PUSH Q6H PRN PRN Reason: NAUSEA OR VOMITING Senna/Docusate Sodium (Catia-Colace) 1 tab PO BID [facility] Last Admin: 06/19/18 08:42 Dose: 1 tab Sennosides (Senokot) 17.2 mg PO Q12H PRN PRN Reason: Moderate Constipation Sodium Chloride (Ns Flush) 2 ml IV.FLUSH BID [facility] Last Admin: 06/19/18 08:42 Dose: Not Given Sodium Chloride (Ns Flush) 2 ml IV.FLUSH PRN PRN PRN Reason: FLUSH AFTER USING IV ACCESS Allergies Allergy/AdvReac Type Severity Reaction Status Date / Time No Known Allergies Allergy Uncoded 03/23/16 01:37 Home Medications Medication Instructions Recorded Confirmed Type lisinopril 10 mg PO DAILY 06/17/18 06/17/18 History Physical Exam Vital signs: Vital Signs 06/18/18 16:00 06/18/18 19:49 06/18/18 20:01 Temperature 96.8 F L 98.1 F Pulse Rate 70 75 Respiratory Rate 15 16 16 Blood Pressure 146/99 H 164/92 H Pulse Oximetry 98 96 06/18/18 23:40 06/19/18 03:49 06/19/18 08:00 Temperature 98.1 F Pulse Rate 67 59 L 72 Respiratory Rate 16 16 20 Blood Pressure 171/95 H 165/90 H 171/90 H Pulse Oximetry 93 L 96 96 06/19/18 09:00 06/19/18 12:13 Temperature 96.6 F L Pulse Rate 71 71 Respiratory Rate 20 Blood Pressure 144/84 H Pulse Oximetry 96 Intake & Output 06/18/18 06/19/18 06/19/18 18:59 06:59 18:59 Intake Total 100 / 100 900 / 900 700 / 700 Output Total 225 / 225 600 / 600 Balance 100 / 100 675 / 675 100 / 100 Intake: IV 100 / 100 900 / 900 700 / 700 NS Inj 1,000 ML @ 100 mls/hr IV 100 / 100 900 / 900 700 / 700 .CONT .Q10H [facility] Rx#:[id number] Output: Urine 225 / 225 600 / 600 Other: # Voids 2 Date of Last Bowel Movement 06/19/18 - Constitutional no acute distress - Routine HEENT Exam Comments: multiple facial lacerations and bruising - Routine Respiratory Exam Present: CTA bilaterally - Routine Cardiovascular Exam Present: RRR, S1, S2 - Routine Abdominal Exam Present: soft - Routine Extremities Exam Absent: edema - Routine Neurological Exam Present: alert, oriented X3 - Routine Psychiatric Exam Present: normal affect Results 06/18/18 05:41 06/18/18 05:41 Cardiac Enzymes 06/17/18 06/18/18 06/18/18 Range/Units 17:10 00:10 05:41 AST 23 19 (15-37) U/L CK-MB (CK-2) 1.7 (0.5-3.6) ng/mL Troponin I Less than 0.02 L Less than 0.02 L (0.02-0.05) ng/mL 06/18/18 Range/Units 05:41 AST (15-37) U/L CK-MB (CK-2) (0.5-3.6) ng/mL Troponin I Less than 0.02 L (0.02-0.05) ng/mL Coagulation 06/17/18 Range/Units 17:10 PT 10.7 (9.8-11.6) sec APTT 25.5 (23.4-31.7) sec CBC 06/17/18 06/18/18 Range/Units 17:10 05:41 WBC 10.1 11.5 H (4.0-11.0) th/mm3 RBC 4.98 4.71 (4.50-5.90) mil/mm3 Hgb 15.7 15.0 (13.0-17.0) gm/dL Hct 44.6 42.7 (39.0-51.0) % Plt Count 228 178 (150-450) th/mm3 Neut # (Auto) 7.6 8.9 H (1.8-7.7) th/mm3 Lymph # (Auto) 1.7 1.7 (1.0-4.8) th/mm3 [place] # (Auto) 0.7 0.8 (0.0-0.9) th/mm3 Eos # (Auto) 0.1 0.1 (0.0-0.4) th/mm3 Baso # (Auto) 0.0 0.0 (0.0-0.2) th/mm3 Comprehensive Metabolic Panel 06/17/18 06/18/18 Range/Units 17:10 05:41 Sodium 140 142 (136-145) meq/L Potassium 5.8 H 4.0 D (3.5-5.1) meq/L Chloride 106 108 H (98-107) meq/L Carbon Dioxide 26.6 25.7 (21.0-32.0) meq/L BUN 12 12 (7-18) mg/dL Creatinine 1.19 0.84 (0.60-1.30) mg/dL Calcium 8.7 8.7 (8.5-10.1) mg/dL AST 23 19 (15-37) U/L ALT 22 24 (12-78) U/L Alkaline Phosphatase 102 95 (45-117) U/L Total Protein 7.2 6.9 (6.4-8.2) g/dL Albumin 3.8 3.4 (3.4-5.0) g/dL Intake and Output 06/18/18 06/19/18 06/19/18 22:59 06:59 14:59 Intake Total 900 / 900 700 / 700 Output Total 225 / 225 600 / 600 Balance -225 / -225 900 / 900 100 / 100 Intake: IV 900 / 900 700 / 700 NS Inj 1,000 ML @ 100 mls/hr IV 900 / 900 700 / 700 .CONT .Q10H [facility] Rx#:[id number] Output: Urine 225 / 225 600 / 600 Other: Date of Last Bowel Movement 06/19/18 - Imaging and Cardiology Imaging: Impressions Chest X-Ray 06/17/18 16:57 CONCLUSION: Clear lungs. Cervical Spine CT 06/17/18 17:00 CONCLUSION: 1. No acute fracture or subluxation. 2. Degenerative spondylosis of the lower cervical spine. Face CT 06/17/18 17:00 CONCLUSION: 1. Comminuted nasal bone fractures, as above. Head CT 06/17/18 17:01 CONCLUSION: Unremarkable cranial study except for nasal bone fractures discussed on the patient's facial CT . Forearm X-Ray 06/17/18 18:57 CONCLUSION: 1. No acute fracture. Assessment and Plan - Assessment (1) Syncope Code(s): R55 - Syncope and collapse Status: Acute (2) Hypotension Code(s): I95.9 - Hypotension, unspecified Status: Acute (3) HTN (hypertension) Code(s): I10 - Essential (primary) hypertension Status: Acute (4) CAD (coronary artery disease) Code(s): I25.10 - Atherosclerotic heart disease of [place] coronary artery without angina pectoris Status: Acute (5) Hx of CABG Code(s): Z95.1 - Presence of aortocoronary bypass graft Status: Acute (6) Facial abrasion Code(s): S00.81XA - Abrasion of other part of head, initial encounter Status: Acute (7) Fracture of nasal bone Code(s): S02.2XXA - Fracture of nasal bones, initial encounter for closed fracture Status: Acute - Plan BP still elevated; adjust meds. O/w remains stable. No recurrent dizziness. Ambulating without difficulty. DC home. Will schedule f/u in our office as outpatient.
== END 2018-06-19 13:20 | disposition home or self-care (01) ==
LOC: NEDA 16:44 → NEDAMB 16:44 → NEPGCP 20:24
PROVIDERS: ADMIT Internal Medicine; ATTEND Internal Medicine
DX: W19.XXXA Unspecified fall, initial encounter; E86.0 Dehydration; I10 Essential (primary) hypertension; S00.81XA Abrasion of other part of head, initial encounter; I95.9 Hypotension, unspecified; E78.5 Hyperlipidemia, unspecified; S02.2XXA Fracture of nasal bones, initial encounter for closed fracture; Z85.46 Personal history of malignant neoplasm of prostate; I25.10 Atherosclerotic heart disease of native coronary artery without angina pectoris; M47.892 Other spondylosis, cervical region; R55 Syncope and collapse; Z95.1 Presence of aortocoronary bypass graft; E87.5 Hyperkalemia
CPT/HCPCS: 70450; 70486; 71010; 71045; 72125; 73090; 80053; 82550; 82552; 82948; 82962; 83735; 84484; 85025; 85610; 85730; 93005; 93306; 96361; 96365; 96366; 96375; 96376; 99285; G0378; J0610; J2270; J7030